=== PATIENT | female | born 1965 | race Caucasian/White ===

== ENCOUNTER → 2020-08-25 | Outpatient (CLI) | payer OTHER ==
--- NOTE | 2020-08-25 15:16 | RAD ---
3 views of the bilateral knees without comparison for pain. FINDINGS: There is no fracture, dislocation, or acute osseous abnormality involving either knee. Minimal degenerative changes are seen bilaterally. No suprapatellar joint effusions. IMPRESSION: 1. No acute osseous abnormality of either knee. Electronically signed by: Madhu Zelaya MD (08/25/2020 3:11 PM) [id number]
--- NOTE | 2020-08-25 15:16 | RAD ---
3 views lumbar spine without comparison for low back pain. FINDINGS: There is straightening of the normal lumbar lordosis. There is mild degenerative disc disease at L5-S1. There is bulky facet arthrosis at L3-4, L4-5, and L5-S1. No fracture or acute osseous abnormality. Vascular calcifications are seen. IMPRESSION: 1. Multilevel advanced facet arthrosis involving the lower lumbar spine. 2. Aortoiliac atherosclerosis. Electronically signed by: Madhu Zelaya MD (08/25/2020 3:12 PM) [id number]
== END ==
LOC: RAD 11:52
PROVIDERS: ATTEND Nurse Practitioner Gerontology
DX: M17.0 Bilateral primary osteoarthritis of knee (principal); M51.37 Other intervertebral disc degeneration, lumbosacral region; M47.817 Spondylosis without myelopathy or radiculopathy, lumbosacral region; I25.10 Atherosclerotic heart disease of native coronary artery without angina pectoris
CPT/HCPCS: 72100; 73562

== ENCOUNTER → 2021-01-02 | Outpatient (CLI) | payer OTHER ==
[~2021-01-02] MED LIST: CLOB15CR TP; CYCL10TA2 PO; DULO60CA6 PO; GADOTERATE 7.5 MMOL/15ML VIAL. IVP ONE; HYDR25TA PO; IBUP-1060 PO; OLAN5TAB9 PO; OMEP20CA16 PO
--- NOTE | 2021-01-02 13:39 | KCIC ---
EXAM: Lumbar spine MRI without contrast. HISTORY: Lower back pain. Sciatica. Bilateral lower extremity numbness, weakness and paresthesia. TECHNIQUE: Multiplanar, multisequence magnetic resonance imaging of the lumbar spine was performed wi thout contrast. COMPARISON: None. FINDINGS: There is minimal lumbar scoliosis. There is grade 1 anterolisthesis of L4 on L5, measuring 5 mm. There is grade 1 anterolisthesis of L5 on S1, measuring 3 mm. There is grade 1 anterolisthesis of L3 on L4, measuring 2 mm. There is multilevel endplate remodeling. There are a few benign osseous hemangiomas. There is no acute osseous finding. There is no suspicious osseous lesion. The conus term inates at L1. At T11-T12, there is a shallow posterior disc protrusion superimposed on a disc bulge. There is mild left greater than right facet arthropathy. There is no stenosis. At T12-L1, there is no stenosis. At L1-L2, there is a shallow right paracentral disc protrusion. There is no stenosis. At L2-L3, there is a disc bulge and endplate remodeling. There is no stenosis. At L3-L4, there is a suspected shallow left foraminal disc protrusion superimposed on a disc bulge an d endplate remodeling. There is grade 1 anterolisthesis. There is mild right and moderate to severe l eft facet arthropathy. There is moderate left foraminal stenosis with abutment the exiting left L3 ne rve root. There is mild central canal stenosis. At L4-L5, there is a suspected shallow left foraminal disc protrusions and posterior disc bulge and e ndplate remodeling. There is grade 1 anterolisthesis. There is severe bilateral facet arthropathy. Th ere is mild to moderate right and moderate left foraminal stenosis with abutment of the exiting left L4 nerve root. There is mild central canal stenosis and narrowing of the left lateral recess. At L5-S1, there is a posterior central disc protrusion and annular tear. There is moderate right face t arthropathy. There is grade 1 anterolisthesis. There is no stenosis. IMPRESSION: 1. Multilevel degenerative change involving the lumbar spine the lower thoracic spine, described in d etail above. This is associated with moderate left foraminal stenosis and abutment the exiting left L 3 nerve root and mild central canal stenosis at L3-L4 and [id number] right and moderate left fo raminal stenosis with abutment the exiting left L4 nerve root and mild central canal stenosis and lef t lateral recess narrowing at L4-L5. 2. Mild scoliosis and grade 1 anterolisthesis at the aforementioned levels. Electronically signed by: Aliyah Jaramillo MD (01/02/2021 1:37 PM) [facility]
--- NOTE | 2021-01-03 08:57 | KCIC ---
MRI BRAIN WO+W History:Reason: WEAKNESS OF EXTREMITIES / Spl. Instructions: / History: Numbness, tingling and weakn ess of extremities. 16cc Clariscan Technique: Multiplanar, multi sequential without and with intravenous contrast MR imaging was perform ed of the brain. Comparison: None Findings: Several foci of FLAIR hyperintensities within the hemispheric white matter predominantly periventricu lar. Right centrum semiovale lesion demonstrates mild enhancement. Left frontal cortical focal enhanc ement (series 10 image 19), may represent additional enhancing lesion or developmental venous anomaly .. Punctate focus of enhancement within the left frontal lobe (series 11 image 18), may represent add itional subtle enhancing lesion. 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 No acute infarct. No intracranial hemorrhage. No mass effect. No hydrocephalus. Imaged orbits are unremarkable. Imaged paranasal sinuses and mastoid air cells are clear. Impression: 1. Several white matter lesions with enhancing lesion within the right centrum semiovale. Findings c oncerning for demyelinating disease with active demyelination. Recommend further clinical evaluation. 2. Potential additional subtle left frontal lobe enhancing lesions. Recommend attention on follow-up . FOR INTERNAL CODING PURPOSES Critical result: Findings discussed with Anju Richard at 01/03/2021 8:48 AM. RESULT CODE: (C) Electronically signed by: Yordan Palma DO (01/03/2021 8:54 AM) [id number]
== END ==
LOC: KCIC MRI 12:34
PROVIDERS: ATTEND Nurse Practitioner Gerontology
DX: M51.27 Other intervertebral disc displacement, lumbosacral region (principal); M43.17 Spondylolisthesis, lumbosacral region; M47.815 Spondylosis without myelopathy or radiculopathy, thoracolumbar region; M48.061 Spinal stenosis, lumbar region without neurogenic claudication; M41.86 Other forms of scoliosis, lumbar region; M51.24 Other intervertebral disc displacement, thoracic region; M12.88 Other specific arthropathies, not elsewhere classified, other specified site; D18.09 Hemangioma of other sites; G93.89 Other specified disorders of brain
CPT/HCPCS: 70553; 72148; A9575